=== PATIENT | male | born 1940 | race Caucasian/White ===

== ENCOUNTER 2025-05-09 12:41 | Emergency (ER) | payer MEDICARE, OTHER ==
[~2025-05-09] VITALS: Ht 167.6 cm; Wt 65.0 kg
[~2025-05-09 12:41] MED LIST: ENAL-79 PO; FURO20TA4 PO; LATA2.5D7 OP; NAPR-681 PO; OMEP20CA14 PO
[2025-05-09 12:42] VITALS: BP 165/55; PULSE 60; RESP 16; TEMP 98.6; O2SAT 100
[2025-05-09] MEDS: TETANUS, DIPHTHERIA, PERTUSSIS VAC/PF 0.5ML (>10YR OLD) IM ONE (14:00)
[2025-05-09] MEDS: ACETAMINOPHEN 500MG TABLET PO ONE (14:39)
[2025-05-09] MEDS: LIDOCAINE HCL 1% 20ML VIAL INFIL ONE (14:40)
[2025-05-09] MEDS ORDERED: BO1 TP (14:53)
[2025-05-09] MEDS ORDERED: ACET-2708 MT (14:53)
== END 2025-05-09 15:29 | disposition home or self-care (01) ==
LOC: ER 13:58
DX: S81.811A Laceration without foreign body, right lower leg, initial encounter (principal); I10 Essential (primary) hypertension; Z79.899 Other long term (current) drug therapy; Z96.651 Presence of right artificial knee joint; W18.30XA Fall on same level, unspecified, initial encounter; Y93.89 Activity, other specified; Y92.89 Other specified places as the place of occurrence of the external cause; Y99.8 Other external cause status
CPT/HCPCS: 99283; 73590; 90715; 12005; 90471; A6449